=== PATIENT | male | born 1965 | race Caucasian/White ===

== ENCOUNTER 2016-04-15 00:37 | Emergency (ER) | payer OTHER ==
[~2016-04-15] VITALS: Ht 175.3 cm; Wt 107.4 kg
[2016-04-15] MEDS ORDERED: METO-309 PO (00:48)
[2016-04-15] MEDS ORDERED: LOSA25TA PO (00:48)
[2016-04-15 00:50] VITALS: BP 140/86; PULSE 73; RESP 20; TEMP 98.1; O2SAT 97
[2016-04-15] MEDS: RESP: ALBUTEROL 2.5 MG/IPRATROPIUM 0.5 MG NEB (SCH) INH ×2 (01:13→01:14)
[2016-04-15] MEDS ORDERED: BENZ100 PO (01:14)
[2016-04-15] MEDS ORDERED: LEVA750T PO (01:14)
[2016-04-15] MEDS ORDERED: PRED20 PO (01:14)
--- NOTE | 2016-04-15 01:14 | PD ---
HPI Chief Complaint: Respiratory Symptoms Time Seen by Provider: 00:56 Travel History International Travel<30 days: No Contact w/Intl Traveler<30days: No Traveled to known affect area: No History of Present Illness HPI 50-year-old male complains of coughing congestion wheezing and shortness of breath. Patient was seen by personal physician 8 weeks ago and received antibiotic IM injection for bronchitis borderline pneumonia. Patient states that he got better and then started having coughing congestion again about 6 days ago. Patient started taking the Z-Jasmeet for 3 days. Patient states that he has persistent coughing congestion wheezing and shortness of breath despite antibiotic. Patient denies any fever chills. Patient has chest wall pain with coughing. Patient denies any nausea vomiting diarrhea. Patient denies any headache. Patient denies abdominal pain. Patient states the cough is persistent and nonproductive. PFSH Past Medical History Cardiovascular Problems: Yes (HTN, THORACIC 4.4 MM ANUERSYM ) Social History Tobacco Use: No Allergies-Medications (Allergen,Severity, Reaction): Coded Allergies: No Known Allergies (Unverified , 04/15/16) Reported Meds & Prescriptions Reported Meds & Active Scripts Active Ceftin (Cefuroxime Axetil) 500 Mg Tab 500 Mg PO BID Tessalon Perles (Benzonatate) 100 Mg Cap 200 Mg PO TID PRN Prednisone 20 Mg Tab 20 Mg PO BID Reported Losartan (Losartan Potassium) 25 Mg Tab 12.5 Mg PO DAILY Lopressor (Metoprolol Tartrate) 50 Mg Tab 25 Mg PO BID Review of Systems General / Constitutional: No: Fever Eyes: No: Visual changes HENT: No: Headaches Cardiovascular: No: Chest Pain or Discomfort Respiratory: Positive: Cough, Shortness of Breath, Wheezing Gastrointestinal: No: Abdominal Pain Genitourinary: No: Dysuria Musculoskeletal: No: Pain Skin: No Rash Neurologic: No: Weakness Psychiatric: No: Depression Endocrine: No: Polydipsia Hematologic/Lymphatic: No: Easy Bruising Physical Exam Narrative GENERAL: Well-nourished, well-developed patient. SKIN: Warm and dry. HEAD: Normocephalic. EYES: No scleral icterus. No injection or drainage. NECK: Supple, trachea midline. No JVD or lymphadenopathy. CARDIOVASCULAR: Regular rate and rhythm without murmurs, gallops, or rubs. RESPIRATORY: Breath sounds equal bilaterally. No accessory muscle use. Patient has moderate expiratory wheezes bilaterally. Few rhonchi at the bases. GASTROINTESTINAL: Abdomen soft, non-tender, nondistended. MUSCULOSKELETAL: No cyanosis, or edema. BACK: Nontender without obvious deformity. No CVA tenderness. Data Data Last Documented VS Vital Signs Date Time Temp Pulse Resp B/P Pulse Ox O2 Delivery O2 Flow Rate FiO2 04/15/16 02:35 87 18 145/78 98 04/15/16 01:03 Room Air 04/15/16 00:50 98.1 Orders Influenzae A/B Antigen (04/15/16 01:04) Chest, Single Ap (04/15/16 01:04) Albuterol-Ipratropium Neb (Duoneb Neb) (04/15/16 01:15) Dexamethasone Inj (Decadron Inj) (04/15/16 01:15) Resp Mdi / Spacer Instruction (04/15/16 01:05) Ceftriaxone Inj (Rocephin Inj) (04/15/16 01:15) Lidocaine Pf 1% Inj (Xylocaine-Mpf 1% In (04/15/16 01:15) Albuterol Hfa Inh (Proair Hfa Inh) (04/15/16 01:15) Cefuroxime (Ceftin) (04/15/16 02:15) Acetamin-Codeine 300-30 Mg (Tylenol-Code (04/15/16 02:15) MDM Medical Decision Making Medical Screen Exam Complete: Yes Emergency Medical Condition: Yes Interpretation(s) 2:05 AM. Chest x-ray shows no acute consolidation. Differential Diagnosis Differential diagnosis including URI, bronchitis, pneumonia. Narrative Course 50-year-old male with coughing congestion wheezing and shortness of breath. Albuterol with Atrovent unit dose treatment 2. Decadron 8 mg IM. Rocephin 1 g IM. Diagnosis Primary Impression: Bronchitis Additional Impression: Reactive airway disease Qualified Code: J45.20 - Reactive airway disease, mild intermittent, uncomplicated Patient Instructions: General Instructions Additional Instructions: Take medications as directed. Use albuterol inhaler as directed. Follow-up with personal physician. Return if worse. Med/Other Pt SpecificInfo: Prescription(s) given Scripts Cefuroxime (Ceftin)500 Mg [id number] Mg PO BID #14 TAB Ref 0 Prov:Eh Levy MD 04/15/16 Benzonatate (Tessalon Perles)100 Mg [id number] Mg PO TID PRN (COUGH) #21 CAP Prov:Eh Levy MD 04/15/16 Prednisone 20 Mg Tab20 Mg PO BID #10 TAB Prov:Eh Levy MD 04/15/16 Disposition: 01 DISCHARGE HOME Condition: Stable Eh Levy MD Apr 15, 2016 01:14
[2016-04-15] MEDS ORDERED: DEXAMETHASONE SOD PHOS 4 MG/ML VIAL IM ONE (01:15)
[2016-04-15] MEDS ORDERED: LIDOCAINE HCL 1% PF 30 ML VIAL XX ONE (01:15)
[2016-04-15] MEDS ORDERED: ALBUTEROL SULFATE 90 MCG/ACT HFA 8 GM INHALER INH ONE (01:15)
[2016-04-15] MEDS ORDERED: CEFT500T3 PO (02:06)
[2016-04-15] MEDS ORDERED: CEFUROXIME AXETIL 500 MG TAB PO ONE (02:15)
[2016-04-15] MEDS ORDERED: ACETAMINOPHEN/CODEINE 300 MG/30 MG TAB PO ONE (02:15)
[2016-04-15 02:35] VITALS: BP 145/78
--- NOTE | 2016-04-15 02:40 | RADHPO ---
EXAM DATE/TIME: 04/15/2016 01:26 [facility] COMPARISON: No previous studies available for comparison. INDICATIONS : Short of breath. MEDICAL HISTORY : Hypertension. SURGICAL HISTORY : None. ENCOUNTER: Initial ACUITY: 1 day PAIN SCORE: 0/10 LOCATION: Bilateral chest FINDINGS: A single view of the chest demonstrates the lungs to be symmetrically aerated without evidence of mas s, infiltrate or effusion. Elevated right hemidiaphragm with minimal basilar atelectasis. The cardio mediastinal contours are unremarkable. Osseous structures are intact. CONCLUSION: 1. Elevated right hemidiaphragm with minimal right basilar atelectasis. Left lung clear. No effusion or pneumothorax. Pete Spain MD on April 15, 2016 at 2:37 Board Certified Radiologist. This report was verified electronically.
== END 2016-04-15 02:38 | disposition home or self-care (01) ==
LOC: PHED 00:37
DX: J45.20 Mild intermittent asthma, uncomplicated (principal); J40 Bronchitis, not specified as acute or chronic; I10 Essential (primary) hypertension
CPT/HCPCS: 71010; 87804; 94640; 94664; 96372; 99283; J0696; J1100